=== PATIENT | female | born 1985 | race Caucasian/White ===

== ENCOUNTER 2025-07-04 09:22 | Outpatient (CLI) | payer OTHER | END 2025-07-04 09:40 | disposition home or self-care (01) | LOC: MRI 09:22 | DX: K86.1 Other chronic pancreatitis (principal); R93.2 Abnormal findings on diagnostic imaging of liver and biliary tract; R93.3 Abnormal findings on diagnostic imaging of other parts of digestive tract | CPT/HCPCS: 74183 ==